=== PATIENT | male | born 2005 | race Caucasian/White ===

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

== ENCOUNTER 2025-01-04 13:43 | Outpatient (AMB) | payer OTHER, SELFPAY ==
--- NOTE | 2025-01-04 15:00 | MHC.OFFWIV ---
Intake Vital Signs 01/04/25 15:01 Height 6 ft Weight 162 lb BMI 22.0 BP 108/58 L Blood Pressure Location Lt brachial Position Sitting Pulse 56 Pulse Source Pulse Oximeter Temp 98.1 F Temp Source Oral Pulse Oximetry (%) 99 Oxygen Delivery Method Room Air Intake Visit Reasons: EP Right eye swelling/redness Intake Note: pt presents with RT eye redness and minimal itching beginning yesterday Allergies Seasonal Allergies Allergy (Mild, Verified 01/04/25 15:04) sinusitis Do you need a note to return to daycare/school/sports/work: Yes HPI HPI Comments History of Present Illness Details 19 y/o Male patient who presents to the walk in clinic with c/o Right Eye pain, redness and swelling since yesterday evening. Reports waking up this morning with the right eye glued together with crusty Mucoid discharge. He does report Blurry vision but no lightsensitivity. Reports recent URI and now he is recovering from it. [facility] Medical History (Updated 01/04/25 @ 16:40 by Laura Stroud NP) Bacterial conjunctivitis Allergic conjunctivitis Review of Systems Const All systems reviewed & are unremarkable except as noted in HPI and below Physical Exam Vital Signs: Last Vital Signs Temp 98.1 F 01/04/25 15:01 Pulse 56 01/04/25 15:01 BP 108/58 L 01/04/25 15:01 Pulse Ox 99 01/04/25 15:01 Oxygen Delivery Method Room Air 01/04/25 15:01 BMI result Body Mass Index 22.0 Const General: no acute distress Nutritional Appearance: well nourished Orientation/consciousness: patient oriented x3 HEENT Head: Yes normocephalic Ears: TM abnormal bulging bilateral and with fluid behind the TM bilateral General nose exam: Normal external nose present Face and sinus: Yes sinuses nontender Mouth: moist mucous membranes Throat: Yes uvula midline Eyes Conjunctivae: conjunctival abnormal right conjunctival injection diffuse and discharge mucoid Pupils: Equal, round and reactive pupils present EOM: EOMs intact bilaterally Direct Ophthalmoscopy: normal light reflex Resp Effort & Inspection: normal respiratory effort Auscultation: clear to auscultation bilaterally, no crackles, no rales, no rhonchi and no wheezes Cardio Heart sounds: S1 normal heart sound present and S2 normal heart sound present Neuro General: patient oriented x3, gait normal and moves all extremities Cranial nerves: Yes Equal, round and reactive pupils present Psych Speech and movement: Normal speech and movement present Assessment & Plan Assessment & Plan (1) Bacterial conjunctivitis: Code(s): H10.9 - Unspecified conjunctivitis Plan: Maintain a good eye hygiene - wash hands frequently. Do not touch eyes. Report: Severe eye pain, photophobia, or decreased vision. Ordered Otic Abx - use as prescribed. Medications: New ciprofloxacin HCl 0.3% Put 1-2 drops in the affected eye every 2hr up to 8 times per day for 2 days; then 4 times per day for 5 days. 5 mL 0RF H10.9 - Unspecified conjunctivitis Discontinued albuterol sulfate Discontinued Reason: Patient Completed Course 5 mg inhalation Q4H PRN 30 ea 0RF shortness of breath or wheezing prednisone Discontinued Reason: Patient Completed Course 40 mg (2 x 20 mg) PO DAILY 5 days 10 tabs 0RF Coding Level of Care Code Est Pt Level 4 (39972) Diagnoses Bacterial conjunctivitis H10.9 Time Spent (min) 20
[2025-01-04 15:01] VITALS: BP 108/58; PULSE 56; TEMP 36.7; O2SAT 99; BMI 22.0
--- OUTSIDE RECORDS SUMMARY | 2025-01-04 17:24 | XMS_ITS | Encounter Summary ---
Author Organization [facility] Address [address] [place] [address] Phone Care Team Providers Care Cement Finisher Apprentice Name Role Phone Yuriy Montesinos MD Primary Care Provider [phone] Reason for Visit * Reason Comments Med Change Request Encounter Details Date Type Department Care Team (Late st Contact Info) Description 11/30/2022 Refill [facility] [place] [address] [place] [address] Yuriy Montesinos MD [address] [place] [address] Mild persistent asthma without complication Social History Tobacco Use Types Packs/Day Years Used Date Smoking Tobacco: Never Smokeless Tobacco: Never Hunger/Food Answer Date Recorded In the last 12 months, did y ou or your family ever eat less than you felt you should because there wasn't enough money for food? No 05/08/2022 Stable Housing Answer Date Recorded Are you worried that in the next 2 months you may not have stable housing? No 05/08/2022 Transportation Concerns Answer Date Rec orded In the last 12 months, have you or your family ever had to go without healthcare because you didn't have a way to get there? No 05/08/2022 Hazards in Home Answer Date Recorded Think about the place you li ve. Do you have problems with any of the following? Pests (mice or roaches), mold, no/not working smoke detectors, water leaks, no window guards. No 2022 Financing Utilities Answer Date Recorde d In the last 12 months, has t he electric, gas, oil, or water company threatened to shut off your services in your home? No 05/08/2022 Safety at Home Answer Date Recorded Are you or your family worried about feeling saf e in your home? No 05/08/2022 Outside Support Answer Date Recorded Do you feel that you need mo re support from other people or programs to help you care for yourself or your family? No 05/08/2022 Understanding Health Concerns Answer Da te Recorded Do you need help understandi ng your or your child's healthcare needs (diagnosis, medications, plan, etc.)? No 05/08/2022 Financing Health Concerns Answer Date R ecorded In the last 12 months, was t here a time when your child needed to see a doctor or get medications or supplies but could not because of cost? No 05/08/2022 Missing School or Work Answer Date Jae rded Did you or your child miss s chool or work because of a health problem that could have been avoided? No 05/08/2022 Sex and Gender Information Value Date Recorded Sex Assigned at Not on file Legal Sex Male 5:12 PM EDT Gender Identity Not on file Sexual Orientation Not on file documented as of this encounter Miscellaneous Notes * Telephone Encounter - Tiffanie Britton LPN - 11/30/2022 1:22 PM EDT Pharm faxing that ventolin not covered needs generic. Call to pharm, they will replace for whateveris covered. They are suggesting that our providers write in note, to fill with whatever albuterol is covered. EH documented in this encounter Plan of Treatment Upcoming Encounters Date Type Department Care Team (Late st Contact Info) Description 02/25/2025 1:45 PM EST Office Visit [facility] [place] [address] [place] [address] Yuriy Montesinos MD [address] [place] [address] documented as of this encounter Visit Diagnoses Diagnosis Mild persistent asthma without complication documented in this encounter Care Teams Cement Finisher Apprentice Relationship Specialty Start Date End Date Yuriy Montesinos MD [address] [place] [address] PCP - General 10/19/16 documented as of this encounter
--- OUTSIDE RECORDS SUMMARY | 2025-01-04 17:24 | XMS_ITS | Encounter Summary ---
Author Organization [facility] Address [address] [place] [address] Phone Care Team Providers Care Costumer Name Role Phone Yuriy Montesinos MD Primary Care Provider [phone] Reason for Visit * Reason Onset Date Comments flu clinic 12/30/2024 Encounter Details Date Type Department Care Team (Late st Contact Info) Description 12/30/2024 Telephone [facility] [place] [address] [place] [address] Taisha Reid [address] [place] [address] flu clinic Social History Tobacco Use Types Packs/Day Years Used Date Smoking Tobacco: Never Smokeless Tobacco: Never Hunger/Food Answer Date Recorded In the last 12 months, did y ou or your family ever eat less than you felt you should because there wasn't enough money for food? No 08/01/2023 Stable Housing Answer Date Recorded Are you worried that in the next 2 months you may not have stable housing? No 08/01/2023 Transportation Concerns Answer Date Rec orded In the last 12 months, have you or your family ever had to go without healthcare because you didn't have a way to get there? No 08/01/2023 Hazards in Home Answer Date Recorded Think about the place you li ve. Do you have problems with any of the following? Pests (mice or roaches), mold, no/not working smoke detectors, water leaks, no window guards. No 2023 Financing Utilities Answer Date Recorde d In the last 12 months, has t he electric, gas, oil, or water company threatened to shut off your services in your home? No 08/01/2023 Safety at Home Answer Date Recorded Are you or your family worried about feeling saf e in your home? No 08/01/2023 Outside Support Answer Date Recorded Do you feel that you need mo re support from other people or programs to help you care for yourself or your family? No 08/01/2023 Understanding Health Concerns Answer Da te Recorded Do you need help understandi ng your or your child's healthcare needs (diagnosis, medications, plan, etc.)? No 08/01/2023 Financing Health Concerns Answer Date R ecorded In the last 12 months, was t here a time when your child needed to see a doctor or get medications or supplies but could not because of cost? No 08/01/2023 Missing School or Work Answer Date Jae rded Did you or your child miss s chool or work because of a health problem that could have been avoided? No 08/01/2023 Child Education Answer Date Recorded Do you have concerns about y our/your child's learning or behavior in school, preschool, or daycare? No 08/01/2023 Sex and Gender Information Value Date Recorded Sex Assigned at Not on file Legal Sex Male 5:12 PM EDT Gender Identity Not on file Sexual Orientation Not on file documented as of this encounter Miscellaneous Notes * Telephone Encounter - Taisha Franklin - 12/30/2024 2:05 PM EDT Call to mom to offer flu clinic. Left message on unidentified voicemail to please return my call. Office number left. documented in this encounter Plan of Treatment Upcoming Encounters Date Type Department Care Team (Late st Contact Info) Description 02/25/2025 1:45 PM EST Office Visit [facility] [place] [address] [place] [address] Yuriy Montesinos MD [address] [place] [address] documented as of this encounter Visit Diagnoses Not on filedocumented in this encounter Care Teams Costumer Relationship Specialty Start Date End Date Yuriy Montesinos MD [address] [place] [address] PCP - General 10/19/16 documented as of this encounter
--- OUTSIDE RECORDS SUMMARY | 2025-01-04 17:24 | XMS_ITS | Encounter Summary ---
Author Organization [facility] Address [address] [place] [address] Phone Care Team Providers Care Special Equipment Technician Name Role Phone Yuriy Montesinos MD Primary Care Provider [phone] Reason for Visit * Reason Comments Med Refill Encounter Details Date Type Department Care Team (Late st Contact Info) Description 01/15/2019 Refill [facility] [place] [address] [place] [address] Yuriy Montesinos MD [address] [place] [address] Asthma, unspecified asthma severity, unspecified whether complicated, unspecified whether persistent Social History Tobacco Use Types Packs/Day Years Used Date Smoking Tobacco: Never Smokeless Tobacco: Never Hunger/Food Answer Date Recorded No 11/24/2018 Stable Housing Answer Date Recorded 0 11/24/2018 Transportation Concerns Answer Date Rec orded No 11/24/2018 Hazards in Home Answer Date Recorded No 11/24/2018 Financing Utilities Answer Date Recorde d No 11/24/2018 Safety at Home Answer Date Recorded No 11/24/2018 Outside Support Answer Date Recorded No 11/24/2018 Understanding Health Concerns Answer Da te Recorded No 11/24/2018 Financing Health Concerns Answer Date R ecorded No 11/24/2018 Missing School or Work Answer Date Jae rded No 11/24/2018 Sex and Gender Information Value Date Recorded Sex Assigned at Not on file Legal Sex Male 5:12 PM EDT Gender Identity Not on file Sexual Orientation Not on file documented as of this encounter Miscellaneous Notes * Telephone Encounter - Lubna Galaviz LPN - 01/16/2019 8:10 AM EST Refill request for Proair. Last PE 11/24/18. I spoke to mom, she said he is running low, used med a lot the beginning of fall with the change of weather and allergies. No asthma symptoms at present/JOD documented in this encounter Plan of Treatment Upcoming Encounters Date Type Department Care Team (Late st Contact Info) Description 02/25/2025 1:45 PM EST Office Visit [facility] - [address] [address] Yuriy Montesinos MD [address] [place] [address] documented as of this encounter Visit Diagnoses Diagnosis Asthma, unspecified asthma severity, unspecified whether complicated, unspecified whether persistent documented in this encounter Care Teams Special Equipment Technician Relationship Specialty Start Date End Date Yuriy Montesinos MD [address] [facility] [place] [address] PCP - General 10/19/16 documented as of this encounter
--- OUTSIDE RECORDS SUMMARY | 2025-01-04 17:24 | XMS_ITS | Encounter Summary ---
Author Organization [facility] Address [address] [place] [address] Phone Care Team Providers Care Acrobatic Dancer Name Role Phone Yuriy Montesinos MD Primary Care Provider [phone] Encounter Details Date Type Department Care Team (Late st Contact Info) Description 04/26/2016 Documentation [facility] [place] [facility] [address] [place] [address] Family Medicine, Physician [address] [place] [address] Social History Tobacco Use Types Packs/Day Years Used Date Smoking Tobacco: Never Assessed Sex and Gender Information Value Date Recorded Sex Assigned at Not on file Legal Sex Male 5:12 PM EDT Gender Identity Not on file Sexual Orientation Not on file documented as of this encounter Plan of Treatment Upcoming Encounters Date Type Department Care Team (Late st Contact Info) Description 02/25/2025 1:45 PM EST Office Visit [facility] - [address] [address] Yuriy Montesinos MD [address] [place] [address] documented as of this encounter Visit Diagnoses Not on filedocumented in this encounter Care Teams Acrobatic Dancer Relationship Specialty Start Date End Date Yuiry Montesinos MD [address] [place] [address] PCP - General 10/19/16 documented as of this encounter
--- OUTSIDE RECORDS SUMMARY | 2025-01-04 17:24 | XMS_ITS | Encounter Summary ---
Author Organization [facility] Address [address] [place] [address] Phone Care Team Providers Care Pumper Gager Apprentice Name Role Phone Yuriy Montesinos MD Primary Care Provider [phone] Reason for Visit * Reason Comments Med Refill Encounter Details Date Type Department Care Team (Late st Contact Info) Description 08/18/2020 Refill [facility] [place] [address] [place] [address] Yuriy Montesinos MD [address] [place] [address] Mild persistent asthma without complication Social History Tobacco Use Types Packs/Day Years Used Date Smoking Tobacco: Never Smokeless Tobacco: Never Hunger/Food Answer Date Recorded In the last 12 months, did y ou or your family ever eat less than you felt you should because there wasn't enough money for food? No 12/15/2019 Stable Housing Answer Date Recorded Are you worried that in the next 2 months you may not have stable housing? No 12/15/2019 Transportation Concerns Answer Date Rec orded In the last 12 months, have you or your family ever had to go without healthcare because you didn't have a way to get there? No 12/15/2019 Hazards in Home Answer Date Recorded Think about the place you li ve. Do you have problems with any of the following? Pests (mice or roaches), mold, no/not working smoke detectors, water leaks, no window guards. No 2019 Financing Utilities Answer Date Recorde d In the last 12 months, has t he electric, gas, oil, or water company threatened to shut off your services in your home? No 12/15/2019 Safety at Home Answer Date Recorded Are you or your family worried about feeling saf e in your home? No 12/15/2019 Outside Support Answer Date Recorded Do you feel that you need mo re support from other people or programs to help you care for yourself or your family? No 12/15/2019 Understanding Health Concerns Answer Da te Recorded Do you need help understandi ng your or your child's healthcare needs (diagnosis, medications, plan, etc.)? No 12/15/2019 Financing Health Concerns Answer Date R ecorded In the last 12 months, was t here a time when your child needed to see a doctor or get medications or supplies but could not because of cost? No 12/15/2019 Missing School or Work Answer Date Jae rded Did you or your child miss s chool or work because of a health problem that could have been avoided? No 12/15/2019 Sex and Gender Information Value Date Recorded Sex Assigned at Not on file Legal Sex Male 5:12 PM EDT Gender Identity Not on file Sexual Orientation Not on file documented as of this encounter Miscellaneous Notes * Telephone Encounter - Johnnie Cook LPN - 08/18/2020 9:32 AM EDT [facility] is requesting a refill on albuterol inhaler. Last PE was 12/15/19 documented in this encounter Plan of Treatment Upcoming Encounters Date Type Department Care Team (Late st Contact Info) Description 02/25/2025 1:45 PM EST Office Visit [facility] [address] [address] Yuriy Montesinos MD [address] [place] [address] documented as of this encounter Visit Diagnoses Diagnosis Mild persistent asthma without complication documented in this encounter Care Teams Pumper Gager Apprentice Relationship Specialty Start Date End Date Yuriy Montesinos MD [address] [place] [address] PCP - General 10/19/16 documented as of this encounter
--- OUTSIDE RECORDS SUMMARY | 2025-01-04 17:24 | XMS_ITS | Encounter Summary ---
Author Organization [facility] Address [address] [place] [address] Phone Care Team Providers Care Generator Technician Name Role Phone Yuriy Montesinos MD Primary Care Provider [phone] Reason for Visit * Reason Comments Med Refill Encounter Details Date Type Department Care Team (Late st Contact Info) Description 07/25/2020 Refill [facility] [place] [address] [place] [address] Yuriy Montesinos MD [address] [place] [address] Asthma, unspecified asthma severity, unspecified whether complicated, [...] Description 02/25/2025 1:45 PM EST Office Visit [facility] [address] [address] Yuriy Montesinos MD [address] [facility] [place] [address] documented as of this encounter Visit Diagnoses Diagnosis Asthma, unspecified asthma severity, unspecified whether complicated, unspecified whether persistent documented in this encounter Care Teams Generator Technician Relationship Specialty Start Date End Date Yuriy Montesinos MD 150 [facility] [place] [address] PCP - General 10/19/16 documented as of this encounter
--- OUTSIDE RECORDS SUMMARY | 2025-01-04 17:24 | XMS_ITS | Encounter Summary ---
Author Organization [facility] Address [address] [place] [address] Phone Care Team Providers Care Hunter Guide Name Role Phone Yuriy Montesinos MD Primary Care Provider [phone] Encounter Details Date Type Department Care Team (Late st Contact Info) Description 10/25/2016 Conversion Encounter [facility] [address] [place] [address] Social History Tobacco Use Types Packs/Day Years [...] Description 02/25/2025 1:45 PM EST Office Visit [facility] [place] [address] [place] [address] Yuriy Montesinos MD [address] [place] [address] documented as of this encounter Visit Diagnoses Not on filedocumented in this encounter Care Teams Hunter Guide Relationship Specialty Start Date End Date Yuriy Montesinos MD [address] [place] [address] PCP - General 10/19/16 documented as of this encounter
--- OUTSIDE RECORDS SUMMARY | 2025-01-04 17:24 | XMS_ITS | Encounter Summary ---
Author Organization [facility] Address [address] [place], [place] [id number] Phone Care Team Providers Care Scale Shooter Name Role Phone Yuriy Montesinos MD Primary Care Provider [phone] Reason for Visit * Reason Comments Med Refill Encounter Details Date Type Department Care Team (Late st Contact Info) Description 06/14/2017 Refill [facility] [place] [address] [place] [address] Joselyn Foss MD [address] [place] [address] Asthma, unspecified asthma severity, unspecified whether complicated, [...] Telephone Encounter - Tiffanie Britton LPN - 06/20/2017 10:15 AM EDT Pt is sched for PE. EH * Telephone Encounter - Joselyn Foss MD - 06/14/2017 4:10 PM EDT He's behind in physicals and doesn't have anything booked; can you call the mom and tell her that Isent the Rx over but she needs to book a new PE kerrie; thanks * Telephone Encounter - Tiffanie Britton LPN - 06/14/2017 3:42 PM EDT LM PCP SL: pharm fax refill request mallory. EH documented in this encounter Plan of Treatment Upcoming Encounters Date Type Department Care Team (Late st Contact Info) Description 02/25/2025 1:45 PM EST Office Visit [facility] [address] [place] [address] Yuriy Monetsinos MD [address] [place] [address] documented as of this encounter Visit Diagnoses Diagnosis Asthma, unspecified asthma severity, unspecified whether complicated, unspecified whether persistent documented in this encounter Care Teams Scale Shooter Relationship Specialty Start Date End Date Yuriy Montesinos MD [address] [place] [address] PCP - General 10/19/16 documented as of this encounter
--- OUTSIDE RECORDS SUMMARY | 2025-01-04 17:24 | XMS_ITS | Clinical Summary ---
Author Organization [facility] Address [address] [place] [id number] Phone Care Team Providers Care Return Checker Name Role Phone Yuriy Montesinos MD Primary Care Provider [phone] Allergies Active Allergy Reactions Criticality Noted Date Comments Environmental 01/12/2021 Seasonal Medications Spacer/Aero-Hold ing Chambers (OPTICHAMBER SHADIA) misc OPTICHAMBER SHADIA; inhale by Inhalation route use c MDI as directed.; 12/08/2015; Active 6 Active cetirizine 10 MG tablet Take 10 mg by mouth daily. Active albuterol HFA (ProAir HFA) 108 (90 Base) MCG/ACT inhalerIndicatio ns:Mild persistent asthma without complication Inhale 2 puffs every 4 (four) hours as needed for wheezing. 1 Units Active Active Problems Problem Noted Date Diagnosed Date COVID 04/18/2021 Dyslexia 01/21/2021 Chronic seasonal allergic rhinitis 06/17/2017 Assessment & Plan (07/30/2018 6:11 PM EDT): Can try adding floanse, with saline after, wash your face a lot Mild intermittent asthma without complication Assessment & Plan (07/30/2018 6:11 PM EDT): Stopped his qvar, and had exacerbation, needs a short prednisone burst Resolved Problems Problem Noted Date Diagnosed Date Resolved Date Refused influenza vaccine 03/06/2018 Encounters Date Type Department Care Team Description 12/30/2024 Telephone [facility] [place] [address] [place], [place] [phone] [facility] 11/10/2024 Refill [facility] [place] [address] [place] [address] Amanda Farris LPN Mild persistent asthma without complication from Last 3 Months Immunizations Immunization Administration Dates Next Due DTaP 11/30/2009, 7,2005,07/20,2005 HPV Vaccine 9 Valent 11/24/2018,07/01/2017 Hep A 08/02/2010 Hep A, ped/adol 06/08/2013 Hep B, ped/adol 2005,2005,2005 HiB 06/20/2006,2005,2005 Hib (PRP-T) 2005 IPV 11/30/2009, 6,2005,05/22 Influenza, injectable, quadrivalent 12/08/2015 Influenza, injectable, quadr ivalent, preservative free 01/31/2022,01/12/2021,12/15/2019,11/24 Influenza, injectable, triva lent, preservative free 11/02/2014 MMR 07/30/2009,03/26/2006 Meningococcal B Trumenba 08/01/2023 Meningococcal Conj (Menactra) MCV4P 07/01/2017 Meningococcal Conj (Menquadfi) MCV4TT 05/08/2022 Pneumococcal Conjugate 13-Valent 007,2005,2005,05/22 Tdap 07/01/2017 Varicella 07/30/2009,11/25/2006 Family History Medical History Relation Name Comments Anxiety disorder Brother Anxiety disorder Father Wilton Asthma Father Wilton Depression Father Wilton Depression Mother Kirk Migraines Mother Kirk Relation Name Status Comments Brother Alive Brother: Alive and well Father Wilton Father: Asthma Mother Kirk Alive Mother: Alive a nd well Social History Tobacco Use Types Packs/Day Years [...] on file Sexual Orientation Not on file Last Filed Vital Signs Vital Sign Reading Time Taken Comments Blood Pressure 128/74 08/01/2023 1:20 PM EDT Pulse 56 08/01/2023 1:20 PM EDT Temperature 36.8 C (98.3 F) 08/01/2023 1:20 PM EDT Respiratory Rate - - Oxygen Saturation 100% 07/30/2018 5:18 PM EDT Inhaled Oxygen Concentration - - Weight 69.7 kg (153 lb 9.6 oz) 08/01/2023 1:20 P M EDT Height 182.9 cm (6') 08/01/2023 1:20 PM EDT Body Mass Index 20.83 08/01/2023 1:20 PM EDT Body Mass Index Percentile 31.86% 08/01/2023 1:2 0 PM EDT Growth Chart: CDC (Boys, 2-2 0 Years) Plan of Treatment Upcoming Encounters Date Type Department Care Team (Late st Contact Info) Description 02/25/2025 1:45 PM EST Office Visit [facility] [place] [address] [place] [address] Yuriy Montesinos MD [address] [place] [address] Health Maintenance Due Date Last Done Comments Men B Vaccine (2 of 2 - Trum enba SCDM 2-dose series) 02/01/2024 08/01/2023 Influenza Vaccines (#1) 2024 02/01/20, 01/12/2021, 12/15/2019, Additional history exists COVID-19 Vaccine (3 - 2024-2 6 season) 2024 08/20/2020, 07/28/2020 DTaP,Tdap,and Td Vaccines (7 - Td or Tdap) 07/02/2027 07/01/2017, 11/30/2009, 06/20/2006, Additional history exists Hepatitis B Vaccines Completed 2005, 2005, 2005 Pneumococcal Vaccine Completed 03/26/2006, 2005, 2005, Additional history exists HIB Vaccines Completed 06/20/2006, 09/08, 2005, Additional history exists MMR Vaccines Completed 07/30/2009, 03/26/2006 Varicella Vaccines Completed 07/30/2009, 11/25/2006 IPV Vaccines Completed 11/30/2009, 09/08, 2005, Additional history exists Hepatitis A Vaccines Completed 06/08/2013, 08/03/19 11 HPV Vaccines Completed 11/24/2018, 07/01/2017 Meningococcal Vaccine Completed 05/08/2022, 018 Insurance [facility] [place] [id number] Care Teams Return Checker Relationship Specialty Start Date End Date Yuriy Montesinos MD [address] [place] [address] [place] [address] PCP - General 10/19/16
== END 2025-01-04 16:05 | disposition home or self-care (01) ==
PROVIDERS: Visit Provider Nurse Practitioner Family
DX: H10.9 Unspecified conjunctivitis (principal)